=== PATIENT | male | born 1960 | race Asian ===

== ENCOUNTER 2024-07-20 17:33 | Inpatient (IN) | payer OTHER ==
[~2024-07-20] VITALS: Ht 160 cm; Wt 70.7 kg
[2024-07-20 20:00] VITALS: BP 182/98; PULSE 82; RESP 18; TEMP 98; O2SAT 93
[2024-07-20] MEDS ORDERED: ACETAMINOPHEN 325 MG TABLET PO PRN (20:00)
[2024-07-20] MEDS ORDERED: DOCUSATE SODIUM 283 MG/5 ML MINI-ENEMA PR PRN (20:00)
[2024-07-20 21:00] VITALS: BP 156/89
[2024-07-20] MEDS: SENNOSIDES 8.6 MG TABLET PO SCH (21:00)
[2024-07-20] MEDS: DOCUSATE SODIUM 100 MG CAPSULE PO SCH (21:00)
[2024-07-20] MEDS: ATORVASTATIN CALCIUM 40 MG TABLET PO SCH (22:02)
[2024-07-20] MEDS: ETHYL ALCOHOL 62% ANTISEPTIC NASAL SANITIZER 0.6 ML AMPUL NASAL SCH (22:06)
[2024-07-21] MEDS: INFLUENZA VIRUS VACCINE TVS (6MO+) 2024-25/PF 45 MCG/0.5 ML SYRINGE IM. ONE (00:27)
[2024-07-21] MEDS ORDERED: LISI-657 PO (02:26)
[2024-07-21] MEDS ORDERED: ATOR40TA28 PO (02:26)
[2024-07-21 08:00] VITALS: BP 159/124; PULSE 88; RESP 19; TEMP 97.8; O2SAT 98
[2024-07-21] MEDS: ASPIRIN 81 MG CHEWABLE TABLET PO SCH (08:18)
[2024-07-21 08:30] VITALS: BP 142/112; PULSE 79; RESP 18; O2SAT 98
[2024-07-21 09:57] LABS: BASOPHILS % (AUTO) 0.8 % (0.0-2.0); EOSINOPHILS % (AUTO) 0.7 % (1.0-6.0); HEMATOCRIT 46.4 % (41-53); HEMOGLOBIN 15.6 g/dL (13.5-17.5); LYMPHOCYTES # (AUTO) 2.3 K/uL (1.0-4.8); LYMPHOCYTES % (AUTO) 25.1 % (22.0-44.0); MEAN CORPUSCULAR HEMOGLOBIN 30.2 pg (26.0-34.0); MEAN CORPUSCULAR HGB CONC 33.6 G/dL (31.0-37.0); MEAN CORPUSCULAR VOLUME 90 fL (80-100); MONOCYTES # (AUTO) 0.6 K/uL (0.1-1.0); NEUTROPHILS # (AUTO) 6.1 K/uL (1.8-7.7); NEUTROPHILS % (AUTO) 66.4 % (40.0-70.0); PLATELET COUNT (AUTO) 288 K/uL (150-450); RED BLOOD CELL COUNT(AUTO) 5.16 MIL/uL (4.50-5.90); RED CELL DISTRIBUTION WIDTH 12.8 % (11.5-14.5); WHITE BLOOD COUNT (AUTO) 9.1 K/uL (4.5-11.0)
[2024-07-21 10:17] LABS: ALANINE AMINOTRANSFERASE 153 U/L (12-78); ALBUMIN 4.1 g/dL (3.4-5.0); ALKALINE PHOSPHATASE 81 U/L (46-116); ANION GAP 6 mmol/L (8-16); ASPARTATE AMINOTRANSFERASE 73 U/L (15-37); BILIRUBIN,TOTAL 0.7 mg/dL (0.1-1.0); CARBON DIOXIDE 30 mmol/L (22-29); CHLORIDE 102 mmol/L (98-107); CREATININE 0.89 mg/dL (0.60-1.30); GLOMERULAR FILTR. RATE CALC > 60 mL/min (>60); GLUCOSE,RANDOM 143 mg/dL (70-110); SODIUM SERUM 138 mmol/L (136-145); TOTAL PROTEIN, SERUM 8.5 g/dL (6.4-8.2); UREA NITROGEN, BLOOD 10 mg/dL (7-18)
[2024-07-21] MEDS: LISINOPRIL 10 MG TABLET PO SCH (14:15)
[2024-07-21 20:00] VITALS: BP 135/83; PULSE 103; RESP 18; TEMP 97.6; O2SAT 100
[2024-07-21] MEDS: MELATONIN 3 MG TABLET PO PRN (20:41)
[2024-07-22 08:00] VITALS: BP 126/82; PULSE 80; RESP 18; TEMP 98; O2SAT 96
[2024-07-22 15:59] VITALS: BP 142/82; PULSE 93; RESP 18; TEMP 98; O2SAT 98
[2024-07-22 20:00] VITALS: BP 159/92; PULSE 94; RESP 18; TEMP 98.3; O2SAT 97
[2024-07-22 21:24] VITALS: BP 148/79; PULSE 87
[2024-07-22 21:25] VITALS: O2SAT 97
[2024-07-23 08:00] VITALS: BP 132/92; PULSE 99; RESP 18; TEMP 98.2; O2SAT 97
[2024-07-23] MEDS ORDERED: ASPI-1450 PO (10:02)
[2024-07-23] MEDS ORDERED: LISI-657 PO (10:02)
[2024-07-23] MEDS ORDERED: ATOR40TA71 PO (10:02)
[2024-07-23 20:38] VITALS: BP 140/77; PULSE 94; RESP 18; TEMP 98.1; O2SAT 98
[2024-07-24 03:21] VITALS: O2SAT 98
[2024-07-24 08:00] VITALS: O2SAT 98
[2024-07-24 08:15] VITALS: BP 134/82; PULSE 92; RESP 18; TEMP 97.6; O2SAT 98
[2024-07-24] MEDS: HYDROCHLOROTHIAZIDE 25 MG TABLET PO SCH (08:27)
[2024-07-24] MEDS: LISINOPRIL 10 MG TABLET PO SCH (08:28)
[2024-07-24] MEDS ORDERED: LISINOPRIL 20 MG TABLET PO SCH (09:00)
[2024-07-26] MEDS ORDERED: ATORVASTATIN CALCIUM 40 MG TABLET PO SCH (21:00)
== END 2024-07-24 12:00 | disposition home or self-care (01) | DRG 57 ==
LOC: 2WR 19:22
PROVIDERS: ADMIT Physical Medicine & Rehabilitation; ATTEND Physical Medicine & Rehabilitation
DX: I69.354 Hemiplegia and hemiparesis following cerebral infarction affecting left non-dominant side (principal); I10 Essential (primary) hypertension; F17.210 Nicotine dependence, cigarettes, uncomplicated; R26.0 Ataxic gait; E78.00 Pure hypercholesterolemia, unspecified; R41.89 Other symptoms and signs involving cognitive functions and awareness; R06.83 Snoring; R53.1 Weakness; Z82.49 Family history of ischemic heart disease and other diseases of the circulatory system
CPT/HCPCS: 80053; 85025; 87081; 92523; 97032; 97110; 97112; 97116; 97150; 97162; 97167; 97530; 97535